=== PATIENT | male | born 1950 | race Caucasian/White ===

== ENCOUNTER 2016-12-03 20:39 | Emergency (ER) | payer MEDICARE, BC ==
[~2016-12-03] VITALS: Wt 86.4 kg
[2016-12-03] MEDS ORDERED: AZIT250T94 PO (22:57)
[2016-12-03] MEDS ORDERED: BENZ100C70 PO (22:58)
--- NOTE | 2016-12-03 23:02 | ERD ---
ER Documentation Chief Complaint Date/Time DATE: 12/03/16 TIME: 23:00 Chief Complaint cough x3 mo HPI Patient is a 66-year-old male with past medical history of hypertension, hyperlipidemia, diabetes who presents the emergency department with a cough 3 months. Patient states his cough was initially dry however now has become productive with yellow phlegm production. Patient denies any fevers however he does report chills. Patient states his been taking Tessalon Perles with minimal alleviation of his symptoms. He states that it does help during the night however during the day it is not helpful. Patient denies any rhinorrhea, throat pain, ear pain, nausea, vomiting, chest pain, shortness of breath or loss consciousness. ROS All systems reviewed and are negative except as per history of present illness. Medications Home Meds Active Scripts Benzonatate* (Tessalon Perle*) 100 Mg Capsule, 100 MG PO Q8H Y for COUGH, #30 CAP Prov:YUNG DIAZ PA-C 12/03/16 Azithromycin* (Zithromax*) 250 Mg Tablet, 250 MG PO .ZPACK DIRECTED, #6 TAB TAKE 500 MG (2 TABS) THE FIRST DAY THEN 250 MG (1 TAB) DAYS 2-5 Prov:YUNG DIAZ PA-C 12/03/16 PMhx/Soc History of Surgery: No Anesthesia Reaction: No Hx Neurological Disorder: No Hx Respiratory Disorders: No Hx Cardiac Disorders: No Hx Psychiatric Problems: No Hx Miscellaneous Medical Probl: No Hx Alcohol Use: No Hx Substance Use: No Hx Tobacco Use: No Physical Exam Vitals Vital Signs Date Time Temp Pulse Resp B/P Pulse Ox O2 Delivery O2 Flow Rate FiO2 12/03/16 20:52 98.8 85 20 167/77 97 Physical Exam GENERAL: Well-developed, well-nourished male. Appears in no acute distress. Speaking in full sentences HEAD: Normocephalic, atraumatic. No deformities or ecchymosis. EYE: Pupils equal, round, and reactive to light. EOMs intact. No conjunctival erythema. No eye discharge. ENT: External ear without any masses or tenderness. Auditory canals clear bilaterally. TM visualized bilaterally, non-erythematous, non-bulging. Nasal mucosa pink with no discharge. Oropharynx is pink without any tonsillar erythema or exudates. No uvula deviation. No kissing tonsils. NECK: Supple. No meningismus. Normal ROM of the neck. LUNG: Clear to auscultation bilaterally. No rhonchi, wheezing, rales or coarse breath sounds. HEART: Regular rate and rhythm. No murmurs, rubs or gallops. BACK: No midline tenderness. EXTREMITES: Equal pulses bilaterally. No peripheral clubbing, cyanosis or edema. No unilateral leg swelling. NEUROLOGIC: Alert and oriented to person, place and time. Moving all four extremities. 5/5 strength in all extremities. Normal speech. Steady gait. (-) Brudzinski sign- no flexion of the hips and knees noted with neck flexion. SKIN: Normal color. Warm and dry. No rashes or lesions. Procedures/MDM MEDICAL DECISION MAKING: This is a 66-year-old male who presents emergency department with a cough 3 months. Patient states initially his cough is dry however it is now become productive. Vital signs were reviewed. Patient was afebrile. Patient was not hypoxic. ENT exam was normal. Exam was normal. Given these findings, the patient's presentation is most consistent with bronchitis.. I have a much lower clinical concern for bacterial infections including GERD, TB, pneumonia, meningitis, sinusitis, otitis externa, acute otitis media, strep pharyngitis, epiglottitis or peritonsillar abscess. PRESCRIPTIONS: Vikas Gardner DISCHARGE: At this time, patient is stable for discharge and outpatient management. Supportive therapies such as OTC throat lozenges, salt water gurgles, popsicles and jello discussed. I have instructed the patient to follow-up with his/her primary care physician in 1-2 days. I have instructed the patient to promptly return to the ER for any new or worsening symptoms including increased pain, swelling, fever, nausea, vomiting, weakness or difficulty breathing. The patient and/or family expressed understanding of and agreement with this plan. All questions were answered. Home care instructions were provided. Patients blood pressure was elevated (>120/80) but appears stable without evidence of hypertensive emergency, hypertensive urgency or end-organ failure. I had discussion with the patient about the risks of hypertension. I have advised the patient to follow up with his/her primary care physician for outpatient monitoring and treatment for hypertension in 2-3 days. I have instructed the patient to return to the ER for any new or worsening symptoms including chest pain, shortness of breath, headache, blurred vision, confusion, nausea, vomiting or LOC. Departure Diagnosis: Primary Impression: Bronchitis Condition: Stable Patient Instructions: Acute Bronchitis Referrals: [facility] YOU HAVE RECEIVED A MEDICAL SCREENING EXAM AND THE RESULTS INDICATE THAT YOU DO NOT HAVE A CONDITION THAT REQUIRES URGENT TREATMENT IN THE EMERGENCY DEPARTMENT. FURTHER EVALUATION AND TREATMENT OF YOUR CONDITION CAN WAIT UNTIL YOU ARE SEEN IN YOUR DOCTORS OFFICE WITHIN THE NEXT 1-2 DAYS. IT IS YOUR RESPONSIBILITY TO MAKE AN APPOINTMENT FOR FOLOW-UP CARE. IF YOU HAVE A PRIMARY DOCTOR --you should call your primary doctor and schedule an appointment IF YOU DO NOT HAVE A PRIMARY DOCTOR YOU CAN CALL OUR PHYSICIAN REFERRAL HOTLINE AT IF YOU CAN NOT AFFORD TO SEE A PHYSICIAN YOU CAN CHOSE FROM THE FOLLOWING [facility] [address] [facility] [address] [facility] [facility] [address] [facility] [address] [facility] [address] [facility] [facility] [address] [facility] [facility] YOU HAVE RECEIVED A MEDICAL SCREENING EXAM AND THE RESULTS INDICATE THAT YOU DO NOT HAVE A CONDITION THAT REQUIRES URGENT TREATMENT IN THE EMERGENCY DEPARTMENT. FURTHER EVALUATION AND TREATMENT OF YOUR CONDITION CAN WAIT UNTIL YOU ARE SEEN IN YOUR DOCTORS OFFICE WITHIN THE NEXT 1-2 DAYS. IT IS YOUR RESPONSIBILITY TO MAKE AN APPOINTMENT FOR FOLOW-UP CARE. IF YOU HAVE A PRIMARY DOCTOR --you should call your primary doctor and schedule and appointment IF YOU DO NOT HAVE A PRIMARY DOCTOR YOU CAN CALL OUR PHYSICIAN REFERRAL HOTLINE AT . IF YOU CAN NOT AFFORD TO SEE A PHYSICIAN YOU CAN CHOSE FROM THE FOLLOWING [facility] INSTITUTIONS: [facility] [address] [place] [address] [facility] [address] [place] [address] [facility] + [facility] [address] [place] [address] Additional Instructions: Call your primary care doctor TOMORROW for an appointment during the next 1-2 days.See the doctor sooner or return here if your condition worsens before your appointment time. YUNG DIAZ PA-C Dec 03, 2016 23:02
[2016-12-03 23:11] VITALS: BP 188/91; PULSE 79; TEMP 97.4
== END 2016-12-03 23:43 | disposition home or self-care (01) ==
LOC: FTE 20:39
DX: J20.9 Acute bronchitis, unspecified (principal); I10 Essential (primary) hypertension; E11.9 Type 2 diabetes mellitus without complications
CPT/HCPCS: 99284